=== PATIENT | female | born 2000 | race Caucasian/White ===

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

== ENCOUNTER 2021-01-06 07:50 | Outpatient (REF) | payer MEDICAID, SELFPAY ==
[2021-01-07 14:36] LABS: Chlamydia Result Negative (Negative); GC Result Negative (Negative)
== END 2021-01-06 07:51 | disposition home or self-care (01) ==
LOC: NCHCN 07:50
PROVIDERS: PCP Family Medicine; Visit Provider Internal Medicine
DX: R30.0 Dysuria (principal); Z11.3 Encounter for screening for infections with a predominantly sexual mode of transmission
CPT/HCPCS: 87491; 87591; 87086

== ENCOUNTER 2021-02-26 14:36 | Outpatient (REF) | payer MEDICAID, SELFPAY | END 2021-02-26 14:37 | disposition home or self-care (01) | LOC: NCHCN 14:36 | PROVIDERS: PCP Family Medicine; Visit Provider Family Medicine | DX: R63.4 Abnormal weight loss (principal) | CPT/HCPCS: 84443 ==

== ENCOUNTER 2021-04-05 01:43 | Outpatient (CLI) | payer MEDICAID, SELFPAY ==
--- NOTE | 2021-04-05 08:30 | DI.US_ITS ---
Exam(s) US PELVIS EXAM: US PELVIS CLINICAL HISTORY: IUD surveillence,z30.431 TECHNIQUE: Transabdominal imaging was performed using standard protocol. COMPARISON: US US PELVIS from 07/02/2019 FINDINGS: KIDNEYS: Kidneys are symmetric in size. No evidence of renal calculi. No evidence of hydronephrosis. No renal mass or cyst identified. UTERUS: Anteverted. 6.4 x 3.1 x 3.0 cm Endometrium: IUD appears appropriately positioned within the endometrium. Endometrium 4 millimeters in thickness. Myometrium: Unremarkable. Cervix: Unremarkable. OVARIES: Right: Cyst or mass: None. Left: Cyst or mass: None. DOPPLER: Color: Symmetric and uniform flow to both ovaries. No hyperemia. CUL-DE-SAC: Free fluid: None. IMPRESSION: 1. IUD appears appropriately positioned within the endometrium. 2. Unremarkable bilateral ovaries. DATA REPOSITORY:
== END 2021-04-05 02:03 ==
PROVIDERS: PCP Family Medicine; Visit Provider Nurse Practitioner Women's Health
DX: Z30.431 Encounter for routine checking of intrauterine contraceptive device (principal)
CPT/HCPCS: 76856

== ENCOUNTER 2022-01-17 10:07 | Outpatient (REF) | payer MEDICAID, SELFPAY ==
--- NOTE | 2022-01-17 09:15 | PAPFT_PTH ---
PATIENT: Ximena Zimmerman LOC: [facility]#:[id number] AGE/SX: 21/F ROOM: RE01/17/[address]: Rosalie Griffith : 2000 BED: DIS: 01/17/2022 SPEC #: [id number] RECD: 01/17/22 18:04 STATUS: KIERRA REQ #: [id number] MAGDALENE: 01/17/22 09:[address]: Rosalie Griffith DEPT: [facility], [facility] Cytology RECD BY: Daly Burton ENTERED: 01/17/22 18:04 SP TYPE: PAPFT OTHR DR: Mary Almeida Tissues: 1 - CX/ENDOCX FOR PAP SMEARS Procedures: PAP THIN PREP/[facility] Screening HPV DNA PROBE Comments: [id number] (CHLAMYDIA/GC)
[2022-01-18 14:24] LABS: Chlamydia Result Negative (Negative); GC Result Negative (Negative)
== END 2022-01-17 10:08 | disposition home or self-care (01) ==
LOC: NCHCN 10:07
PROVIDERS: PCP Family Medicine; Visit Provider Nurse Practitioner Family
DX: Z11.3 Encounter for screening for infections with a predominantly sexual mode of transmission (principal); Z12.4 Encounter for screening for malignant neoplasm of cervix; R87.610 Atypical squamous cells of undetermined significance on cytologic smear of cervix (ASC-US); Z11.51 Encounter for screening for human papillomavirus (HPV); R87.810 Cervical high risk human papillomavirus (HPV) DNA test positive
CPT/HCPCS: 87491; 87591; 88142; 87624

== ENCOUNTER 2023-02-27 13:44 | Outpatient (REF) | payer MEDICAID, SELFPAY ==
[2023-02-27 14:34] LABS: Abs Immature Grans 0.04 10^3/uL (0.0-0.06); Absolute Basophil Count 0.05 10^3/uL (0.0-0.2); Absolute Eosinophil Count 0.13 10^3/uL (0.0-0.7); Absolute Lymphocyte Count 1.94 10^3/uL (1.2-3.4); Absolute Neutrophil Count 3.73 10^3/uL (1.2-6.7); Basophils % 0.8; HCT 40.2 % (36.0-46.0); HGB 13.5 g/dL (11.2-15.7); Immature Grans % 0.6; Lymphocytes % 29.9; MCH 31.6 pg (27.0-33.0); MCHC 33.6 % (32.0-36.0); MCV 94 fL (80-95); MPV 9.9 fL (8.0-11.0); Monocytes % 9.2; Neutrophils % 57.5; Platelet Count 284 10^3/uL (130-400); RBC 4.27 10^6/uL (3.93-5.22); RDW 11.9 % (11.7-14.6); RDW-SD 41.3 fL; WBC 6.49 10^3/uL (4.4-10.8)
[2023-02-27 14:47] LABS: BUN 12 mg/dL (7-18); CREATININE 0.8 mg/dL (0.55-1.02); Calcium 9.1 mg/dL (8.5-10.1); Chloride 103 mmol/L (98-107); Estimated GFR 107.44 (mL/min/1.73m2); Glucose 98 mg/dL (74-106); Potassium 3.8 mmol/L (3.5-5.1); Sodium 137 mmol/L (136-145)
[2023-03-01 17:15] LABS: CRP, High Sensitivity <0.34 mg/L (See Note)
== END 2023-02-27 13:45 | disposition home or self-care (01) ==
LOC: LBN 13:44
PROVIDERS: PCP Family Medicine; Visit Provider Podiatrist Foot & Ankle Surgery
DX: Z01.818 Encounter for other preprocedural examination (principal)
CPT/HCPCS: 80048; 86141; 85025; 86140

== ENCOUNTER 2023-06-20 13:25 | Outpatient (REF) | payer MEDICAID, SELFPAY ==
--- NOTE | 2023-06-20 13:00 | PAPFT_PTH ---
PATIENT: Ximena Zimmerman LOC: [facility] U#:[id number] AGE/SX: 23/F ROOM: RE06/20/[address]: Roz Worrell NP : 2000 BED: DIS: 06/20/2023 SPEC #: [id number] RECD: 06/20/23 17:32 STATUS: KIERRA REAamir #: [id number] MAGDALENE: 06/20/23 13:[address]: Roz Worrell NP DEPT: [facility] Cytology RECD BY: Daly Bruton ENTERED: 06/20/23 17:32 SP TYPE: PAPFT OTHR DR: Mary Almeida Tissues: 1 - CX/ENDOCX FOR PAP SMEARS Procedures: PAP THIN PREP/[facility] Screening Comments: [id number]
== END 2023-06-20 13:26 | disposition home or self-care (01) ==
LOC: LBN 13:25
PROVIDERS: PCP Family Medicine; Visit Provider Nurse Practitioner Women's Health
DX: Z12.4 Encounter for screening for malignant neoplasm of cervix (principal); Z87.410 Personal history of cervical dysplasia
CPT/HCPCS: 88142

== ENCOUNTER 2024-11-29 09:10 | Outpatient (CLI) | payer OTHER, SELFPAY ==
[2024-11-29 12:40] LABS: Abs Immature Grans 0.09 10^3/uL (0.0-0.06); HCT 35.4 % (36.0-46.0); HGB 12.2 g/dL (11.2-15.7); Immature Grans % 0.9 %; MCH 33.0 pg (27.0-33.0); MCHC 34.5 % (32.0-36.0); MCV 96 fL (80-95); MPV 10.3 fL (8.0-11.0); Platelet Count 230 10^3/uL (130-400); RBC 3.70 10^6/uL (3.93-5.22); RDW 12.7 % (11.7-14.6); RDW-SD 44.3 fL; WBC 10.44 10^3/uL (4.4-10.8)
[2024-11-30 02:27] LABS: HIV-1/2 Ag & Ab Screen Negative (Negative)
[2024-11-30 02:29] LABS: Hepatitis C Ab w Rflx HCV PCR Negative (Negative)
[2024-12-02 09:16] LABS: Rubella IgG Ab (UVM) Positive (See Note)
[2024-12-03 19:07] LABS: Syphilis IgG w/Reflex Nonreactive (Nonreactive)
== END 2024-11-29 09:11 | disposition home or self-care (01) ==
PROVIDERS: Advanced Practice Midwife; PCP Family Medicine; Visit Provider Advanced Practice Midwife
DX: Z34.91 Encounter for supervision of normal pregnancy, unspecified, first trimester (principal)
CPT/HCPCS: 36415; 86787; 86803; 86850; 86900; 86901; 87340; 87389; 85025; 86762; 86780

== ENCOUNTER 2024-11-29 11:11 | Outpatient (REF) | payer OTHER, SELFPAY ==
--- NOTE | 2024-11-29 11:30 | PAPFT_PTH ---
PATIENT: Ximena Zimmerman LOC: [facility] U#:[id number] AGE/SX: 24/F ROOM: RE11/29/[address]: Rosalie Hernandes : 2000 BED: DIS: 11/29/2024 SPEC #: [id number] RECD: 12/02/24 12:30 STATUS: KIERRA MANRIQUEZ #: [id number] MAGDALENE: 11/29/24 11:[address]: Rosalie Hernandes DEPT: [facility] Cytology RECD BY: Daly Burton ENTERED: 12/02/24 12:30 SP TYPE: PAPFT OTHR DR: Mary Almeida Tissues: 1 - CX/ENDOCX FOR PAP SMEARS Procedures: PAP THIN PREP/[facility] Screening HPV DNA PROBE Comments: [id number] (HPV 16 & 18/45) (CHLAMYDIA/GC)
[2024-12-03 11:25] LABS: Chlamydia Result Negative (Negative); GC Result Negative (Negative)
== END 2024-11-29 11:12 | disposition home or self-care (01) ==
LOC: LBN 11:11
PROVIDERS: PCP Family Medicine; Visit Provider Advanced Practice Midwife
DX: Z34.91 Encounter for supervision of normal pregnancy, unspecified, first trimester (principal); Z12.4 Encounter for screening for malignant neoplasm of cervix
CPT/HCPCS: 87491; 87591; 88142; 87086; 87624

== ENCOUNTER 2025-02-12 14:53 | Outpatient (REF) | payer OTHER, SELFPAY | END 2025-02-12 14:54 | disposition home or self-care (01) | LOC: LBN 14:53 | PROVIDERS: PCP Family Medicine; Visit Provider Advanced Practice Midwife | DX: Z34.92 Encounter for supervision of normal pregnancy, unspecified, second trimester (principal) | CPT/HCPCS: 87480; 87510; 87660 ==

== ENCOUNTER 2025-03-12 00:51 | Outpatient (CLI) | payer OTHER, SELFPAY ==
[2025-03-12 09:13] LABS: HCT 37.6 % (36.0-46.0); HGB 12.7 g/dL (11.2-15.7); MCH 32.9 pg (27.0-33.0); MCHC 33.8 % (32.0-36.0); MCV 97 fL (80-95); MPV 8.9 fL (8.0-11.0); Platelet Count 277 10^3/uL (130-400); RBC 3.86 10^6/uL (3.93-5.22); RDW 12.5 % (11.7-14.6); RDW-SD 44.6 fL; WBC 17.40 10^3/uL (4.4-10.8)
[2025-03-12 09:28] LABS: Glucose,1 Hr (Glucola) 80 mg/dL (80-140)
== END 2025-03-12 00:52 | disposition home or self-care (01) ==
LOC: LBO 00:51
PROVIDERS: PCP Family Medicine; Visit Provider Advanced Practice Midwife
DX: Z34.92 Encounter for supervision of normal pregnancy, unspecified, second trimester (principal); O26.892 Other specified pregnancy related conditions, second trimester; Z67.91 Unspecified blood type, Rh negative
CPT/HCPCS: 36415; 82950; 85027; 86850; 86900; 86901; 90384